=== PATIENT | male | born 1985 | race Caucasian/White ===

== ENCOUNTER 2021-04-12 07:38 | Emergency (ER) | payer OTHER ==
[~2021-04-12] VITALS: Ht 182.9 cm; Wt 90.7 kg
[2021-04-12] MEDS ORDERED: ADDERALL 10 MG10 MG PO (07:57)
[2021-04-12] MEDS ORDERED: ADDERALL 30 MG30 MG PO (07:57)
[2021-04-12 08:17] LABS: ABSOLUTE BASOPHILS 0.1 thou/uL (0.0-0.2); ABSOLUTE EOSINOPHILS 0.2 thou/uL (0.0-0.7); ABSOLUTE MONOCYTES 0.5 thou/uL (0.0-1.2); ABSOLUTE NEUTROPHILS 3.6 thou/uL (1.6-8.1); BASOPHILS 0.8 %; EOSINOPHILS 2.5 %; HEMATOCRIT 41.8 % (42.0-52.0); HEMOGLOBIN 14.6 gm/dL (14.0-18.0); LYMPHOCYTES 41.2 %; MCH 29.3 pg (26.0-34.0); MCHC 34.9 g/dL (28.0-37.0); MCV 83.9 fL (80.0-100.0); MPV 8.4 fl. (7.2-11.1); NUCLEATED RBCS 0 /100WBC; PLATELET COUNT* 280 thou/uL (150-400); POLYS 48.5 %; RBC 4.98 mil/uL (4.50-6.00); RDW-CV 12.9 % (10.5-14.5); WBC 7.4 thou/uL (4.0-11.0)
[2021-04-12 08:26] LABS: CALCIUM 8.7 mg/dL (8.5-10.1)
[2021-04-12 08:30] LABS: TOTAL PROTEIN 7.4 g/dL (6.4-8.2)
[2021-04-12] MEDS ORDERED: IBUPROFEN 800800 MG PO (09:08)
[2021-04-12] MEDS ORDERED: ZOFRAN ODT4 MG DISSOLVE (09:08)
[2021-04-12] MEDS ORDERED: FLOMAX0.4 MG PO (09:08)
[2021-04-12] MEDS ORDERED: CIPRO500 M1 PO (09:08)
[2021-04-12] MEDS ORDERED: HYDROCODON-ACE1 EAC7 PO (09:08)
[2021-04-12 09:55] VITALS: BP 130/77
== END 2021-04-12 09:55 | disposition home or self-care (01) ==
LOC: M.ERS 07:38
PROVIDERS: Family Medicine
DX: N20.0 Calculus of kidney (principal); F90.9 Attention-deficit hyperactivity disorder, unspecified type; Z79.899 Other long term (current) drug therapy